=== PATIENT | female | born 1960 | race Caucasian/White ===

== ENCOUNTER 2019-01-08 15:33 | Inpatient (IN) | payer BC ==
[~2019-01-08] VITALS: Ht 165.1 cm; Wt 93.4 kg
[2019-01-08 15:34] VITALS: BP 115/70
[2019-01-08 16:13] LABS: BASOPHILS 0.6 % (0.0-2.0); EOSINOPHILS 1.4 % (0.0-3.0); HEMATOCRIT 37.2 % (37.0-47.0); HEMOGLOBIN 12.7 gm/dL (12.0-15.0); LYMPHOCYTES 19.9 % (24.0-44.0); MCH 30.2 pg (26.0-34.0); MCHC 34.2 g/dL (28.0-37.0); MCV 88.3 fL (80.0-100.0); MONOCYTES 11.8 % (1.0-8.0); PLATELET COUNT 241 thou/uL (150-400); POLYS 66.3 % (36.0-66.0); RBC 4.21 mil/uL (4.20-5.00); RDW 13.3 % (10.5-14.5); WBC 7.5 thou/uL (4.0-11.0)
[2019-01-08 16:26] LABS: ANION GAP 11 mmol/L (7-16); BUN 16 mg/dL (7-18); CALCIUM 9.7 mg/dL (8.5-10.1); CHLORIDE 102 mmol/L (98-107); CO2 26 mmol/L (21-32); CREATININE 0.8 mg/dL (0.6-1.0); DIRECT BILIRUBIN < 0.1 mg/dL (<0.1-0.3); GLUCOSE 107 mg/dL (74-106); SGOT 25 U/L (15-37); SGPT 13 U/L (30-65); SODIUM 139 mmol/L (136-145); TOTAL BILIRUBIN 0.3 mg/dL (<0.1-1.0); TOTAL PROTEIN 7.7 g/dL (6.4-8.2); TROPONIN-I <0.06 ng/mL (<0.06)
[2019-01-08 16:27] LABS: POTASSIUM 2.8 mmol/L (3.5-5.1)
[2019-01-08] MEDS ORDERED: SUPER THERAVIT1 EACH PO (16:31)
[2019-01-08] MEDS ORDERED: PROZAC10 M1 PO (16:31)
[2019-01-08] MEDS ORDERED: LISINOPRIL2.5 MG PO (16:31)
[2019-01-08] MEDS ORDERED: HYDROCHLOROTHIA25 M2 PO (16:31)
[2019-01-08] MEDS ORDERED: TYLENOL ARTHRI650 MG PO (16:32)
[2019-01-08] MEDS ORDERED: FLONASE 0.05%50 MCG NARES (16:32)
[2019-01-08 19:52] VITALS: BP 141/55
[2019-01-08 20:13] VITALS: BP 132/64
[2019-01-08] MEDS ORDERED: PRINIVIL20 M1 PO (22:05)
[2019-01-08 22:10] VITALS: BP 130/81
[2019-01-08 23:14] VITALS: BP 137/79
[2019-01-09] VITALS (7 sets, daily range): BP systolic 121–154; BP diastolic 65–91
[2019-01-09 05:32] LABS: CALCIUM 9.2 mg/dL (8.5-10.1); CREATININE 0.6 mg/dL (0.6-1.0)
[2019-01-09 05:40] LABS: POTASSIUM 3.9 mmol/L (3.5-5.1)
--- NOTE | 2019-01-09 09:24 | 2DMMODE ---
[facility] [address] [place] [address] 2 D/M-MODE ECHOCARDIOGRAM Name: CASEJONATHAN Room #: 361-P ADM IN .R.#: [id number] Admission: 01/08/19 Attend Phys: Shruthi Bynum, Discharge: Date of : 62 Report #: [id number] THIS REPORT FOR: //name// APPROVED REPORT Study performed: 01/09/2019 08:09:14 EXAM: Comprehensive 2D, Doppler, and color-flow Echocardiogram Patient Location: Bedside Room #: 361 Status: routine BSA: 2.00 HR: 57 bpm BP: 124/73 mmHg Rhythm: LBBB Other Information Study Quality: Adequate Indications Syncope 2D Dimensions RVDd: 27.15 mm IVSd: 13.05 (7-11mm) LVOT Diam: 20.77 (18-24mm) LVDd: 46.02 mm PWd: 13.34 (7-11mm) Ascending Ao: 38.39 (22-36mm) LVDs: 32.44 (25-40mm) Aortic Root: 33.61 mm Volumes Left Atrial Volume (Systole) Single Plane 4CH: 56.46 mL Single Plane 2CH: 64.85 mL LA ESV Index: 32.00 mL/m2 Aortic Valve AoV Peak Yoseph.: 1.47 m/s AO Peak Gr.: 8.70 mmHg LVOT Max P.31 mmHg LVOT Max V: 0.91 m/s REED Vmax: 2.09 cm2 Mitral Valve E/A Ratio: 0.8 MV Decel. Time: 198.70 ms MV E Max Yoseph.: 0.62 m/s [facility] [address] [place] [address] 2 D/M-MODE ECHOCARDIOGRAM Name: JONATHAN KELSEY Room #: 361-P ADM IN [facility]#: [id number] Admission: 01/08/19 Attend Phys: Shruthi Bynum, Discharge: Date of : 62 Report #: [id number] MV A Yoseph.: 0.79 m/s MV PHT: 57.62 ms IVRT: 101.50 ms Pulmonary Valve PV Peak Yoseph.: 1.19 m/s PV Peak Gr.: 5.62 mmHg Pulmonary Vein P Vein S: 0.53 m/s P Vein A: 0.24 m/s P Vein D: 0.26 m/s P Vein A Dur.: 143.0 msec P Vein S/D Ratio: 2.04 Tricuspid Valve TR Peak Yoseph.: 2.07 m/s RAP Estimate: 5.00 mmHg TR Peak Gr.: 17.20 mmHg Left Ventricle The left ventricle is normal size. Mild concentric left ventricular hypertrophy. Left ventricular systolic function is normal. LVEF is 55%. Mild diastolic dysfunction is present (impaired relaxation pattern). Right Ventricle The right ventricle is normal size. The right ventricular systolic function is normal. Atria The left atrium size is normal. The right atrium size is normal. Aortic Valve The aortic valve is normal in structure; mildly thickened. Trace aortic regurgitation. There is no aortic valvular stenosis. Mitral Valve The mitral valve is normal in structure. Mild mitral regurgitation. Tricuspid Valve The tricuspid valve is normal in structure. Mild tricuspid regurgitation. Estimated PAP is 20-25mmHg. Pulmonic Valve Pulmonic valve is not well visualized. Trace pulmonic regurgitation. [facility] [place] [address] 2 D/M-MODE ECHOCARDIOGRAM Name: CASE,JONATHAN Cox Room #: 361-P [facility] IN M.R.#: [id number] Admission: 01/08/19 Attend Phys: Shruthi Bynum, Discharge: Date of : 62 Report #: [id number] Great Vessels The aortic root is normal in size. The ascending aorta is borderline dilated. IVC is normal in size and collapses >50% with inspiration. Pericardium There is no pericardial effusion. <Conclusion> The left ventricle is normal size. LVEF is 55%. The aortic valve is normal in structure; mildly thickened. Trace aortic regurgitation. The mitral valve is normal in structure. Mild mitral regurgitation. The tricuspid valve is normal in structure. Mild tricuspid regurgitation. Estimated PAP is 20-25mmHg. Trace pulmonic regurgitation. There is no pericardial effusion. <ELECTRONICALLY SIGNED> By: Matti Strange MD 01/09/19923 3 3 Matti Strange MD /INF
[2019-01-09 18:14] LABS: URINE BILIRUBIN NEGATIVE (Negative); URINE BLOOD TRACE (Negative); URINE CLARITY CLEAR; URINE COLOR YELLOW; URINE GLUCOSE-RANDOM* NEGATIVE (Negative); URINE KETONES NEGATIVE (Negative); URINE NITRITE-REFLEX NEGATIVE (Negative); URINE PROTEIN (DIPSTICK) NEGATIVE (Negative); URINE SPECIFIC GRAVITY <= 1.005 (1.005-1.035); URINE UROBILINOGEN 0.2 E.U./dl (0.2-1.0)
[2019-01-09 18:17] LABS: URINE LEUKOCYTES-REFLEX 1+ (Negative)
[2019-01-09 18:29] LABS: BACTERIA-REFLEX 1-9 Few /HPF (None Seen); CASTS None Seen /LPF (None Seen); CRYSTALS None Seen /LPF (None Seen); SQUAMOUS 0-3 Few /LPF (0-3); URINE RBC 0-2 Rare /HPF (0-2); URINE WBC-REFLEX 0-5 Rare /HPF (0-5)
[2019-01-09 18:39] LABS: AMP/METHAMP Negative (Negative); BARBITURATES Negative (Negative); BENZODIAZEPINES Negative (Negative); COCAINE Negative (Negative); METHADONE Negative (Negative); OPIATES Negative (Negative); PCP Negative (Negative)
--- NOTE | 2019-01-09 19:13 | EKG ---
[place] [address] [facility] [place] [address] ELECTROCARDIOGRAM REPORT Name: CASEJONATHAN Room #: 204-P ADM IN M.R.#: [id number] Admission: 01/08/19 Attend Phys: Shruthi Bynum MD Discharge: Date of : 62 Report #: [id number] THIS REPORT FOR: //name// [facility] ED Test Date: 2019-01-08 Test Time: 15:41:54 Pat Name: JONATHAN KELSEY Department: Room: 204 Gender: F Occupational Therapy Assistant: JUAN : 1960 Requested By: Oneyda Zaidi Order Number: [id number] MD: Slim Carey Measurements Intervals [place] Rate: 55 P: -21 MA: 205 QRS: -24 QRSD: 167 T: 151 QT: 483 QTc: 462 Interpretive Statements Sinus rhythm Left bundle branch block No previous ECG available for comparison Electronically Signed On 01-09-2019 19:12:58 [employer] by Slim Carey [email or web address] <ELECTRONICALLY SIGNED> By: Slim Carey MD, [facility] 01/09/19 1912 1541 1541 Slim Carey MD, FACC /EPI
--- NOTE | 2019-01-09 19:18 | EKG ---
[address] [employer] [place] [place] [address] ELECTROCARDIOGRAM REPORT Name: CASEJONATHAN Room #: 204-P ADM IN M.R.#: [id number] Admission: 01/08/19 Attend Phys: Shruthi Bynum MD Discharge: Date of : 62 Report #: [id number] THIS REPORT FOR: //name// [facility] Test Date: 2019-01-09 Test Time: 03:28:59 Pat Name: JONATHAN KELSEY Department: Room: 204 Gender: F Sr Technical Sales Consultant: bridgett : 1960 Requested By: Alanis Mascorro Order Number: [id number] MD: Slim Carey Measurements Intervals [place] Rate: 55 P: -5 MA: 217 QRS: -22 QRSD: 155 T: 93 QT: 493 QTc: 472 Interpretive Statements Sinus bradycardia Prolonged MA interval Left bundle branch block No previous ECG available for comparison Electronically Signed On 01-09-2019 19:18:13 [employer] by Slim Carey [email or web address] <ELECTRONICALLY SIGNED> By: Slim Carey MD, [facility] 01/09/19 1918 0328 0328 Slim Carey MD, FACC /EPI
[2019-01-10] VITALS (16 sets, daily range): BP systolic 116–155; BP diastolic 66–91
[2019-01-10 04:32] LABS: APTT 28.3 Seconds (24.5-32.8); PROTIME 9.9 Seconds (9.3-11.4)
[2019-01-10 07:59] LABS: ABSOLUTE NEUTROPHILS 3.4 thou/uL (1.4-8.2); EOSINOPHILS 2.5 % (0.0-3.0); HEMOGLOBIN 12.5 gm/dL (12.0-15.0); LYMPHOCYTES 18.7 % (24.0-44.0); MCH 30.3 pg (26.0-34.0); MCHC 32.9 g/dL (28.0-37.0); MONOCYTES 11.2 % (1.0-8.0); PLATELET COUNT 229 thou/uL (150-400); POLYS 66.6 % (36.0-66.0); RBC 4.13 mil/uL (4.20-5.00); RDW 13.5 % (10.5-14.5); WBC 5.1 thou/uL (4.0-11.0)
[2019-01-10 08:08] LABS: ALBUMIN 3.6 g/dL (3.4-5.0); CALCIUM 9.1 mg/dL (8.5-10.1); CREATININE 0.7 mg/dL (0.6-1.0); MAGNESIUM 2.3 mg/dL (1.8-2.4); POTASSIUM 3.9 mmol/L (3.5-5.1); TOTAL BILIRUBIN 0.4 mg/dL (<0.1-1.0); TOTAL PROTEIN 6.5 g/dL (6.4-8.2)
[2019-01-11 04:59] VITALS: BP 165/74
[2019-01-11 07:41] VITALS: BP 146/81
[2019-01-11 09:13] LABS: HEMATOCRIT 41.5 % (37.0-47.0); MCH 30.2 pg (26.0-34.0); MCHC 33.7 g/dL (28.0-37.0); MCV 89.7 fL (80.0-100.0); RBC 4.62 mil/uL (4.20-5.00); RDW 13.1 % (10.5-14.5); WBC 6.6 thou/uL (4.0-11.0)
[2019-01-11 09:17] LABS: CALCIUM 9.7 mg/dL (8.5-10.1); CREATININE 0.6 mg/dL (0.6-1.0); POTASSIUM 3.5 mmol/L (3.5-5.1)
[2019-01-11 10:12] VITALS: BP 146/81
--- NOTE | 2019-01-12 09:38 | CATHLAB ---
[facility] [place] [address] INVASIVE PROCEDURE REPORT Name: CASEJONATHAN Room #: 204-P [facility] IN ..#: [id number] Admission: 01/08/19 Attend Phys: Shruthi Bynum, Discharge: 01/11/19 Date of : 62 Report #: [id number] THIS REPORT FOR: //name// APPROVED REPORT Study performed: 01/10/2019 11:08:30 Event Personnel: Matti Strange Wood Carver, Luis Hutchinson RN, Mariangel, Balbina Monitor, Oneyda Desai RTR Scrub Exam: Insertion of Dual Chamber Permanent Pacemaker, supervision of conscious sedation The patient is a 58 year-old female with a history of . Conscious Sedation Start time: 12:11 End Time: 13:15 Demerol 25 mg IV total in divided doses Implanted Devices: Generator REF: [id number] Exp: 06/27/2020 SN: [id number] Lead REF: [id number] Exp: 10/28/2021 SN: [id number] Lead REF: [id number] Exp: 10/28/2021 SN: [id number] Lead Capture: 1.5V @ 0.4ms (bi) Sense: 4.3mV (Bi) Lead Impedance: 540 omhs (Bi) V Lead Capture: 0.5V @ 0.4ms (Bi) Sense: 11.2mV (Bi) Lead Impedance: 540 omhs (Bi) Procedure The patient underwent informed consent. We discussed the details of the procedure including the risks, which include, but not limited to bleeding, infection, vascular damage, cardiac perforation, and pneumothorax. She understood these risks and was willing to proceed. As such, she was brought to the EP/Cardiac Catheterization laboratory in a fasting and sedated state and prepped and draped in a sterile fashion, received IV antibiotics prior to initiation of the procedure and a venogram was performed showing patency of the left axillary vein. The patient underwent conscious sedation, with no related complications. The patient was brought to the EP/Cardiac Catheterization laboratory and the left chest and shoulder were prepped and draped in a sterile manner. The left subclavian region was infiltrated with 2% Lidocaine subcutaneous anesthesia. A transverse incision [place] [address] INVASIVE PROCEDURE REPORT Name: JONATHAN KELSEY Room #: 204-P [facility] IN [facility].#: [id number] Admission: 01/08/19 Attend Phys: Shruthi Bynum, Discharge: 01/11/19 Date of : 62 Report #: [id number] upper chest cavity. The subcutaneous pocket was formed via blunt dissection. Percutaneous venous access was achieved and an introducer sheath was inserted into the left Subclavian vein. Sheaths were positions using the modified Seldinger technique Through the introducer sheaths the atrial and ventricular lead wires were positioned in the right atrial appendage and right ventricular apex respectively. Capturing and sensing thresholds were verified. Electrode Parameters P Wave: 4.3 mV R Wave: 11.2 mV Atrial Threshold: 1.5 V Ventricular Threshold: 0.5 V Atrial Resistance: 540 ohms Ventricular Resistance: 540 ohms Dual Chamber The atrial and ventricular leads were then secured using 2.0 ethibond sutures. The subcutaneous pocket was irrigated with ancef antibiotic solution.The atrial and ventricular leads were attached to the appropriate receptacles on the pulse generator and set screws firmly tightened to insure adequate contact and stability. The lead and pulse generator were placed into the subcutaneous pocket. Sharp and sponge counts were confirmed to be correct. At this time the pocket was closed subcutaneously with a 2. 0 Ethibond and the skin was closed with a 3.0 Vicryl. Complications The patient tolerated the procedure well and there were no complications associated with the procedure. Findings Specimens Removed: N/A Estimated Blood Loss: 10 mL Conclusion 1. Successful implantation of a dual-chamber [employer] permanent pacemaker Recommendations 1. Routine post insertion protocol <ELECTRONICALLY SIGNED> By: Matti Strange MD 01/12/1937 6 6 Matit Strange MD /INF
== END 2019-01-11 10:46 | disposition home or self-care (01) | DRG 244 ==
LOC: ER 15:33 → EROBS 18:39 → 2N 18:39 → 3W 18:39 → 2N 01-09 17:30 → ENTRNSPT 01-11 10:39 → EDTRNSPTSTS 01-11 10:41 → 2N 01-11 10:46
PROVIDERS: Emergency Medicine; Internal Medicine; Nurse Practitioner Family; ADMIT Internal Medicine
PROC: 02HK3JZ Insertion of Pacemaker Lead into Right Ventricle, Percutaneous Approach (ICD-10-PCS; principal; 2019-01-10)
PROC: B51N1ZZ Fluoroscopy of Left Upper Extremity Veins using Low Osmolar Contrast (ICD-10-PCS; principal; 2019-01-10)
PROC: 02H63JZ Insertion of Pacemaker Lead into Right Atrium, Percutaneous Approach (ICD-10-PCS; principal; 2019-01-10)
PROC: 0JH606Z Insertion of Pacemaker, Dual Chamber into Chest Subcutaneous Tissue and Fascia, Open Approach (ICD-10-PCS; principal; 2019-01-10)
DX: I45.5 Other specified heart block (principal); E87.6 Hypokalemia; I10 Essential (primary) hypertension; M19.90 Unspecified osteoarthritis, unspecified site; F32.9 Major depressive disorder, single episode, unspecified; E66.9 Obesity, unspecified; Z68.34 Body mass index [BMI] 34.0-34.9, adult; Z88.1 Allergy status to other antibiotic agents; Z88.8 Allergy status to other drugs, medicaments and biological substances; Z23 Encounter for immunization; Z79.899 Other long term (current) drug therapy
CPT/HCPCS: 10081; 10879

== ENCOUNTER → 2019-05-15 | Outpatient (CLI) | payer OTHER ==
[~2019-05-15] MED LIST: FLONASE 0.05%50 MCG NARES; HYDROCHLOROTHIA25 M2 PO; LISINOPRIL2.5 MG PO; PRINIVIL20 M1 PO; PROZAC10 M1 PO; SUPER THERAVIT1 EACH PO; TYLENOL ARTHRI650 MG PO
== END ==
LOC: CAT 09:33
DX: Z13.6 Encounter for screening for cardiovascular disorders (principal); I25.10 Atherosclerotic heart disease of native coronary artery without angina pectoris; E78.00 Pure hypercholesterolemia, unspecified

== ENCOUNTER → 2019-08-09 | Outpatient (CLI) | payer BC | LOC: SJCVCIMAG 11:53 | PROVIDERS: ATTEND Internal Medicine Cardiovascular Disease | DX: I87.2 Venous insufficiency (chronic) (peripheral) (principal); I87.8 Other specified disorders of veins ==

== ENCOUNTER → 2019-10-18 | Outpatient (CLI) | payer BC, OTHER | LOC: SJCVCIMAG 06:45 | PROVIDERS: ATTEND Internal Medicine Cardiovascular Disease | DX: I34.0 Nonrheumatic mitral (valve) insufficiency (principal); Z95.0 Presence of cardiac pacemaker ==

== ENCOUNTER → 2019-12-06 | Outpatient (CLI) | payer BC, OTHER ==
[~2019-12-06] VITALS: Ht 162.6 cm; Wt 88.0 kg
[~2019-12-06] MED LIST changes: +BENICAR20 MG PO; +CULTURELLE KID1 EAC1 PO
[2019-12-06 11:53] VITALS: BP 133/83
[2019-12-06 12:01] LABS: HEMATOCRIT 37.8 % (37.0-47.0); HEMOGLOBIN 12.6 gm/dL (12.0-15.0); MCH 30.7 pg (26.0-34.0); MCHC 33.4 g/dL (28.0-37.0); RBC 4.11 mil/uL (4.20-5.00); RDW 13.3 % (10.5-14.5); WBC 4.7 thou/uL (4.0-11.0)
[2019-12-06 12:23] LABS: CALCIUM 9.1 mg/dL (8.5-10.1); CREATININE 0.5 mg/dL (0.6-1.0)
[2019-12-06 15:00] VITALS: BP 128/68
[2019-12-06 15:30] VITALS: BP 125/78
== END | disposition home or self-care (01) ==
LOC: CATH 09:13
PROVIDERS: ATTEND Nuclear Medicine Nuclear Cardiology
DX: I87.1 Compression of vein (principal); I87.323 Chronic venous hypertension (idiopathic) with inflammation of bilateral lower extremity; M79.605 Pain in left leg; M79.604 Pain in right leg; R22.43 Localized swelling, mass and lump, lower limb, bilateral; I10 Essential (primary) hypertension; I25.10 Atherosclerotic heart disease of native coronary artery without angina pectoris; E78.5 Hyperlipidemia, unspecified; E66.09 Other obesity due to excess calories; F41.9 Anxiety disorder, unspecified; Z98.890 Other specified postprocedural states; Z79.899 Other long term (current) drug therapy; Z95.0 Presence of cardiac pacemaker; Z68.44 Body mass index [BMI] 60.0-69.9, adult

== ENCOUNTER → 2020-02-14 | Outpatient (CLI) | payer BC, OTHER | LOC: SJCVCIMAG 07:36 | PROVIDERS: ATTEND Internal Medicine Cardiovascular Disease | DX: I34.0 Nonrheumatic mitral (valve) insufficiency (principal); I51.7 Cardiomegaly; Z95.0 Presence of cardiac pacemaker ==